=== PATIENT | male | born 2005 | race Caucasian/White ===

== ENCOUNTER → 2023-05-16 | Outpatient (CLI) | payer BC ==
[2023-05-16 13:34] LABS: Basophils # (auto) 0.1 10 ^3/uL (0-0.2); Basophils % (auto) 0.9 % (0.0-2.0); Eosinophils # (auto) 0.2 10 ^3/uL (0-0.8); Eosinophils % (auto) 2.6 % (0.0-7.0); Hemoglobin 15.2 g/dL (13.5-17.5); Lymphocytes # (auto) 1.1 10 ^3/uL (0.4-5.4); Lymphocytes % (auto) 19.4 % (10.0-50.0); Mean Corpuscular Hemoglobin 31.1 pg (28.0-32.0); Mean Corpuscular Hgb Conc. 34.5 g/dL (32.0-36.0); Mean Corpuscular Volume 90.2 fL (80.0-100.0); Monocytes # (auto) 0.4 10 ^3/uL (0-1.3); Monocytes % (auto) 6.4 % (0.0-12.0); Neutrophils % (auto) 70.7 % (37.0-80.0); Nucleated Red Blood Cells % 0.2 %; Red Blood Cells 4.88 10^6/uL (4.5-5.90); Red Cell Distribution Width 12.5 % (11.8-14.3); White Blood Cell 5.7 10^3/uL (4.4-10.8)
[2023-05-16 13:36] LABS: Urine Blood Negative /uL (Negative)
[2023-05-16 14:01] LABS: Cannabinoid Screen, Urine NEGATIVE (NEGATIVE)
[2023-05-16 14:02] LABS: Magnesium 2.1 mg/dL (1.6-2.6); Potassium 4.3 mmol/L (3.5-5.1)
[2023-05-16 14:07] LABS: Alcohol, Urine < 3.0 mg/dL (0-10); Amphetamine Screen, Urine NEGATIVE (NEGATIVE); Barbiturate Scree,Urine NEGATIVE (NEGATIVE); Benzodiazephine Screen, Urine NEGATIVE (NEGATIVE); Cocaine Screen, Urine NEGATIVE (NEGATIVE); Opiate Scree,Urine NEGATIVE (NEGATIVE); Phencyclidine Screen, Urine NEGATIVE (NEGATIVE)
[2023-05-16 14:08] LABS: Albumin 4.2 g/dL (3.4-5.0); BUN/Creatinine Ratio 15.7 (10.0-20.0); Bilirubin, Direct 0.3 mg/dL (0-0.2); Bilirubin, Total 1.5 mg/dL (0.2-1.0); Calcium 9.3 mg/dL (8.5-10.1); Total Protein 7.3 g/dL (6.4-8.2)
[2023-05-16 14:09] LABS: Free T4 (Free Thyroxine) 1.13 ng/dL (0.89-1.76)
== END | disposition home or self-care (01) ==
LOC: LAB 13:07
PROVIDERS: ATTEND Internal Medicine Cardiovascular Disease
DX: Z11.3 Encounter for screening for infections with a predominantly sexual mode of transmission (principal); R82.5 Elevated urine levels of drugs, medicaments and biological substances
CPT/HCPCS: 36415; 80053; 80061; 80076; 80307; 81003; 82306; 82607; 83036; 83735; 84403; 84439; 84443; 85025; 87086

== ENCOUNTER 2025-11-24 09:19 | Outpatient (CLI) | payer BC ==
[~2025-11-24] VITALS: Ht 195.6 cm; Wt 90.7 kg
--- NOTE | 2025-12-02 15:04 | DVHSR ---
APPROVED REPORT EXAM: Two-dimensional and M-mode echocardiogram with Doppler and color Doppler. DIMENSIONS LVDd 4.7 (3.8-5.7cm) LA (2D) 3.5 (1.9-4.0cm) Aortic Root 3.1 (2.0-3.7cm) LVDs 3.1 (2.5-4.0cm) LA (MM) (1.9-4.0cm) Aortic Cusp Exc 2.1 (1.5-2.0cm) EF (%) 62.5 (55-70%) Rt. Atrium 3.8 (1.9-4.0cm) Asc. Aorta cm IVSd 0.7 (0.7-1.1cm) RV (D) 4.5 (1.8-2.4cm) PWd 1.0 (0.7-1.1cm) Mitral Valve Mitral Mitral Stenosis E wave 0.80m/s MV Mean GR. mmHg A wave 0.50m/s MV Peak GR. mmHg E/A ratio 1.6 2D MVA cm2 DECEL Time 158ms PRESS 1/2 Time ms Aortic Valve Aortic Valve Aortic Stenosis V1 0.97m/s AO Mean GR. 3mmHg V2 1.30m/s AO Peak GR. 7mmHg Pulmonic Valve V2 0.82m/s Tricuspid Valve TR Velocity 2.17m/s RVSP 26mmHg LEFT VENTRICLE The Ejection Fraction is >55%. RIGHT VENTRICLE The right ventricle is normal size. ATRIA The left atrial size is normal. The right atrium size is normal. MITRAL VALVE The mitral valve is normal in structure and function. There is no mitral valve regurgitation noted. PULMONIC VALVE The pulmonic valve is not well visualized. TRICUSPID VALVE The tricuspid valve is grossly normal. AORTIC VALVE The aortic valve opens well. No aortic regurgitation is present. GREAT VESSELS The aortic root is normal size. PERICARDIAL EFFUSION There is no pericardial effusion. Conclusion EF >55%
== END 2025-11-24 17:00 | disposition home or self-care (01) ==
LOC: Rad HDHVI 09:19
PROVIDERS: ATTEND Internal Medicine Cardiovascular Disease
DX: I45.10 Unspecified right bundle-branch block (principal); I49.8 Other specified cardiac arrhythmias; R00.0 Tachycardia, unspecified; R06.02 Shortness of breath; R00.1 Bradycardia, unspecified; R94.31 Abnormal electrocardiogram [ECG] [EKG]
CPT/HCPCS: 78452; 93017; 93306

== ENCOUNTER → 2025-11-26 | Outpatient (CLI) | payer BC ==
[2025-11-26 10:49] LABS: Hematocrit 45.3 % (41.0-53.0); Hemoglobin 15.8 g/dL (13.5-17.5); Mean Corpuscular Hemoglobin 30.8 pg (28.0-32.0); Mean Corpuscular Volume 88.3 fL (80.0-100.0); Nucleated Red Blood Cells % 0.1 %
[2025-11-26 11:15] LABS: Urine Protein, UAD 1+ (Negative)
[2025-11-26 11:27] LABS: Alanine Aminotransferase 39 U/L (7-40); Anion Gap 7 (5-15); BUN/Creatinine Ratio 11.2 (10.0-20.0); Blood Urea Nitrogen 13 mg/dL (9-23); Carbon Dioxide 30 mmol/L (20-31); Chloride 104 mmol/L (98-107); Cholesterol 161 mg/dL (< 200); Glucose 85 mg/dL (74-106); Magnesium 1.9 mg/dL (1.6-2.6); Sodium 141 mmol/L (136-145); Total Protein 7.4 g/dL (5.7-8.2); Triglycerides 35 mg/dL (< 150)
[2025-11-26 11:32] LABS: Albumin 5.0 g/dL (3.2-4.8); Alkaline Phosphatase 138 U/L (46-116); Bilirubin, Total 3.0 mg/dL (0.2-1.0); Calcium 10.5 mg/dL (8.7-10.4); HDL Cholesterol 62 mg/dL (40-59); Potassium 5.4 mmol/L (3.5-5.1)
[2025-11-26 11:43] LABS: Free T4 (Free Thyroxine) 1.18 ng/dL (0.89-1.76)
[2025-11-26 12:19] LABS: Uric Acid 8.2 mg/dL (3.7-9.2)
== END | disposition home or self-care (01) ==
LOC: LAB 09:25
PROVIDERS: ATTEND Internal Medicine Cardiovascular Disease
DX: I10 Essential (primary) hypertension (principal); E11.9 Type 2 diabetes mellitus without complications; E78.00 Pure hypercholesterolemia, unspecified; D51.3 Other dietary vitamin B12 deficiency anemia; C61 Malignant neoplasm of prostate; E55.9 Vitamin D deficiency, unspecified; M10.9 Gout, unspecified; R53.0 Neoplastic (malignant) related fatigue; R00.2 Palpitations; Z13.6 Encounter for screening for cardiovascular disorders
CPT/HCPCS: 36415; 80053; 80061; 81003; 82306; 82607; 83036; 83735; 84403; 84439; 84443; 84550; 85025; 86141